=== PATIENT | female | born 1960 | race Caucasian/White ===

== ENCOUNTER 2019-02-08 06:00 | Outpatient (RCR) | payer OTHER, SELFPAY | END 2019-03-10 00:01 | LOC: SPT 06:00 | PROVIDERS: Family Provider Family Medicine; Visit Provider Family Medicine | DX: S46.912D Strain of unspecified muscle, fascia and tendon at shoulder and upper arm level, left arm, subsequent encounter (principal); X58.XXXD Exposure to other specified factors, subsequent encounter | CPT/HCPCS: 97110 ×3; 97140 ×4; 97164 ==

== ENCOUNTER 2019-03-11 13:18 | Outpatient (RCR) | payer SELFPAY | END 2019-03-11 23:00 | disposition home or self-care (01) | LOC: SPT 13:18 | PROVIDERS: Family Provider Family Medicine; PCP Family Medicine; Visit Provider Family Medicine | DX: S46.912D Strain of unspecified muscle, fascia and tendon at shoulder and upper arm level, left arm, subsequent encounter (principal); X58.XXXD Exposure to other specified factors, subsequent encounter ==

== ENCOUNTER 2020-03-16 06:00 | Outpatient (RCR) | payer OTHER, SELFPAY | END 2020-04-10 23:59 | disposition home or self-care (01) | LOC: SPT 06:00 | PROVIDERS: Family Provider Family Medicine; PCP Family Medicine; Referring Provider Family Medicine; Visit Provider Family Medicine | DX: M54.89 Other dorsalgia (principal) | CPT/HCPCS: 97110; 97161; 97530 ==

== ENCOUNTER 2020-04-06 08:14 | Outpatient (CLI) | payer OTHER, SELFPAY ==
--- NOTE | 2020-04-06 08:20 | MM_ITS ---
WS: [id number] BILATERAL SCREENING DIGITAL MAMMOGRAM WITH CAD HISTORY: SCREENING COMPARISON: 08/07/2013 Bilateral CC and MLO views submitted. Computer aided detection analyzed. Breast composition: There are scattered areas of fibroglandular density. No suspicious masses, microc alcifications or architectural distortion. MM/[place] [id number] IMPRESSION: BI-RADS: 1-Negative FOLLOW UP: 1 Year Follow-up
== END 2020-04-06 08:15 | disposition home or self-care (01) ==
LOC: RADSHAW 08:19
PROVIDERS: PCP Family Medicine; Visit Provider Family Medicine
DX: Z12.31 Encounter for screening mammogram for malignant neoplasm of breast (principal)
CPT/HCPCS: 77067

== ENCOUNTER 2020-04-11 06:00 | Outpatient (RCR) | payer OTHER, SELFPAY | END 2020-05-08 23:59 | disposition home or self-care (01) | LOC: SPT 06:00 | PROVIDERS: Family Provider Family Medicine; PCP Family Medicine; Referring Provider Family Medicine; Visit Provider Family Medicine | DX: M54.89 Other dorsalgia (principal); G89.29 Other chronic pain | CPT/HCPCS: 97110 ==

== ENCOUNTER 2020-08-16 14:57 | Outpatient (CLI) | payer OTHER, SELFPAY ==
--- NOTE | 2020-08-16 15:15 | MR_ITS ---
WS: [id number] MRI THORACIC SPINE WITHOUT CONTRAST TECHNIQUE: Sagittal T1, T2 and STIR imaging. Axial T2 imaging. Noncontrast imaging obtained. CLINICAL INFORMATION: BACK PAIN, CHRONIC COMPARISON: None. FINDINGS: Mild thoracic curve. No acute compression. No high-grade central canal stenosis. Cord signal is ben l. Tiny central protrusions in the mid thoracic spine more prominent at T6-7 and T7-8 with a tiny marisela ular fissure at T6-7. This slightly contacts the thoracic cord. No significant central canal stenosis . Moderate facet arthropathy lower thoracic spine. Mild bony foraminal narrowing right T3-4, right T4-5, and bilateral T8-9, Normal caliber thoracic aorta. Adrenal glands are normal. Small right renal cyst. MR/MR thoracic spin wo con* [id number] IMPRESSION: 1. Mild thoracic curve. No acute compression. No high-grade central canal sten osis. 2. Small central disc protrusions at T6-T7 and T7-T8 with slight contact of th e thoracic cord at T6-7 with small annular fissure. No central canal stenosis. 3. Moderate facet arthropathy lower thoracic spine. 4. Mild bony foraminal narrowing right T3-4, right T4-5, and bilateral T8-9
--- NOTE | 2020-08-16 16:00 | MR_ITS ---
WS: [id number] MRI LUMBAR SPINE NONCONTRAST TECHNIQUE: Sagittal T1, T2 and STIR imaging. Axial T1 and T2 imaging. CLINICAL INFORMATION: BACK PAIN, CHRONIC COMPARISON: None. FINDINGS: Mild lumbar curve. No acute compression. No high-grade central canal stenosis. L1-L2: Normal. L2-L3: No significant disc bulging. Mild facet arthropathy. Spinal canal and foramen are patent. L3-L4: Mild annular bulging. Mild right and no significant left foraminal narrowing. Mild facet arthr opathy. Spinal canal is patent. L4-L5: Mild disc bulging and osteophytic ridging. Slight effacement of ventral thecal sac. Right ecce ntric disc osteophyte complex with mild right foraminal narrowing. Slight contact of the exiting righ t L4 nerve root. Left foramen is patent. Moderate facet arthropathy. L5-S1: Mild annular bulging. Spinal canal and foramen are patent. Mild facet arthropathy. Visualized pelvic bony structures: Normal. Paravertebral soft tissues: Normal. Small central protrusion in the cervical spine at C5-C6. MR/MR lumbar spine wo con* [id number] IMPRESSION: 1. Mild lumbar curve. No acute compression. No high-grade central canal stenos is. 2. Disc osteophyte complex L4-5 eccentric to the right with mild right foramin al narrowing and contact of the exiting right L4 nerve root. 3. Mild right L3-4 foraminal narrowing. 4. Moderate facet arthropathy worse at L4-5.
== END 2020-08-16 14:58 | disposition home or self-care (01) ==
PROVIDERS: PCP Family Medicine; Visit Provider Nurse Practitioner Family
DX: M25.78 Osteophyte, vertebrae (principal); M47.816 Spondylosis without myelopathy or radiculopathy, lumbar region; M51.24 Other intervertebral disc displacement, thoracic region; M47.814 Spondylosis without myelopathy or radiculopathy, thoracic region
CPT/HCPCS: 72146; 72148

== ENCOUNTER 2021-09-12 06:00 | Outpatient (RCR) | payer OTHER, SELFPAY | END 2021-10-08 23:59 | disposition home or self-care (01) | LOC: SPT 06:00 | PROVIDERS: PCP Family Medicine; Referring Provider Family Medicine; Visit Provider Family Medicine | DX: M54.89 Other dorsalgia (principal); G89.29 Other chronic pain | CPT/HCPCS: 20560; 97110; 97161 ==

== ENCOUNTER 2021-10-09 06:00 | Outpatient (RCR) | payer OTHER, SELFPAY | END 2021-11-08 23:59 | disposition home or self-care (01) | LOC: SPT 06:00 | PROVIDERS: PCP Family Medicine; Referring Provider Family Medicine; Visit Provider Family Medicine | DX: M54.50 Low back pain, unspecified (principal); G89.29 Other chronic pain | CPT/HCPCS: 97110 ==

== ENCOUNTER 2021-11-09 06:00 | Outpatient (RCR) | payer OTHER, SELFPAY | END 2021-12-08 23:59 | disposition home or self-care (01) | LOC: SPT 06:00 | PROVIDERS: PCP Family Medicine; Visit Provider Family Medicine | DX: M47.26 Other spondylosis with radiculopathy, lumbar region (principal); M54.50 Low back pain, unspecified | CPT/HCPCS: 20560; 97110 ==

== ENCOUNTER 2021-12-09 06:00 | Outpatient (RCR) | payer OTHER, SELFPAY | END 2022-01-08 23:59 | disposition home or self-care (01) | LOC: SPT 06:00 | PROVIDERS: PCP Family Medicine; Visit Provider Family Medicine | DX: M47.26 Other spondylosis with radiculopathy, lumbar region (principal); M54.50 Low back pain, unspecified | CPT/HCPCS: 97110 ==

== ENCOUNTER → 2021-12-27 11:31 | Outpatient (BNVA) | payer OTHER, SELFPAY | PROVIDERS: PCP Family Medicine; Visit Provider Internal Medicine Rheumatology | DX: Z79.899 Other long term (current) drug therapy (principal); M19.90 Unspecified osteoarthritis, unspecified site; M25.50 Pain in unspecified joint; L60.8 Other nail disorders | CPT/HCPCS: 36415; 73130; 73630; 80076; 82306; 82565; 85025; 85651; 86140; 86200; 86431; 86812 ==

== ENCOUNTER 2022-01-09 14:25 | Outpatient (RCR) | payer OTHER, SELFPAY | END 2022-02-07 23:59 | disposition home or self-care (01) | LOC: SPT 14:25 | PROVIDERS: PCP Family Medicine; Visit Provider Family Medicine | DX: M54.50 Low back pain, unspecified (principal); M54.16 Radiculopathy, lumbar region | CPT/HCPCS: 20560; 97110 ==

== ENCOUNTER 2022-09-06 12:29 | Outpatient (CLI) | payer OTHER, SELFPAY ==
--- NOTE | 2022-09-06 12:30 | XR_ITS ---
WS: [id number] Exam: XR knee LT 3V* [id number] Date/Time of Exam: 09/06/2022 12:37 PM Reason For Exam: continued pain 6 weeks p trauma No fracture or dislocation noted. Articular relationships are intact. No joint effusion. XR/XR knee LT 3V* [id number] Impression: Normal left knee
== END 2022-09-06 12:30 | disposition home or self-care (01) ==
PROVIDERS: Visit Provider Family Medicine
DX: S80.02XA Contusion of left knee, initial encounter (principal); X58.XXXA Exposure to other specified factors, initial encounter
CPT/HCPCS: 73562

== ENCOUNTER 2024-05-19 08:35 | Outpatient (CLI) | payer SELFPAY ==
[2024-05-19 08:56] LABS: HF Add Manual Diff No
[2024-05-19 08:58] LABS: Basophils % 0.4 %; Eosinophils # 0.3 10^3/uL (0.0-0.8); Eosinophils % 3.9 %; Hematocrit 43.3 % (36-47); Lymphocytes # 2.5 10^3/uL (0.8-4.8); Lymphocytes % 33.7 %; Mean Corpuscular HGB Conc 33.3 g/dL (30-55); Mean Corpuscular Volume 96.2 fl (85-98); Mean Platelet Volume 11.1 fL (7.4-10.4); Monocytes # 0.7 10^3/uL (0.2-0.9); Monocytes % 9.4 %; Neutrophils # 3.85 10^3/uL (1.8-7.7); Neutrophils % 52.3 %; Nucleated Red Blood Cells % 0 %; Platelet Count 280 10^3/cmm (157-399); Red Cell Distribution Width 12.7 % (12.1-15.1); White Blood Count 7.36 10^3/uL (3.29-11.43)
[2024-05-19 09:09] LABS: Estmated Average Glucose 137; Hemoglobin A1C 6.4 % (4.0-6.0)
[2024-05-19 09:16] LABS: Alanine Aminotransferase 26 U/L (0-33); Albumin Level 3.9 g/dL (3.5-5.2); Alkaline Phosphatase 62 U/L (35-105); Anion Gap 12.2 (5-19); Aspartate Amino Transferase 21 U/L (0-32); Blood Urea Nitrogen 14 mg/dL (8-23); Calcium 8.9 mg/dL (8.5-10.5); Carbon Dioxide 24 mmol/L (22-29); Chloride 107 mmol/L (98-107); Chol HDL Ratio 3.96 mg/dL (0.0-4.40); Cholesterol 222 mg/dL (0-200); Glomerular Filtration Rate 84.5 mL/min (90-130); Glucose 150 mg/dL (65-115); HDL Cholesterol 56 mg/dL (60-100); LDL Cholesterol Calculated 138 mg/dL (50-129); LDL HDL Ratio 2.46 RATIO (0.00-3.22); Osmolality Calculated 291 mOsm/kg (285-295); Potassium 4.2 mmol/L (3.5-5.1); Sodium 139 mmol/L (136-145); Total Bilirubin 0.5 mg/dL (0.15-1.2); Total Protein 6.9 g/dL (6.6-8.7); Triglycerides 141 mg/dL (0-150)
== END 2024-05-19 08:36 | disposition home or self-care (01) ==
LOC: LAB 08:37
PROVIDERS: Visit Provider Dermatology
DX: Z01.89 Encounter for other specified special examinations (principal)
CPT/HCPCS: 36415